=== PATIENT | male | born 1990 | race Hispanic/Latino ===

== ENCOUNTER 2019-09-07 20:35 | Emergency (ER) | payer SELFPAY ==
--- NOTE | 2019-09-07 20:57 | EDPHYS ---
Physician Documentation [facility] Name: Harpreet Rivsa Age: 29 yrs Sex: Male : 1990 Arrival Date: 09/07/2019 Time: 20:38 Bed 6 Private MD: ED Physician Frankie Millan HPI: 09/07 20:53 This 29 yrs old Male presents to ER via Ambulatory with complaints of Hand ma2 Pain, finger pain, swelling in finger. 20:53 The patient or guardian reports an abrasion, a contusion, decreased range of motion. ma2 Onset: The symptoms/episode began/occurred gradually, 1 day(s) ago. Associated signs and symptoms: Pertinent negatives: decreased sensation distally, fever, numbness distally, tingling distally. Severity of symptoms: At their worst the symptoms were mild, in the emergency department the symptoms are unchanged. The patient has not experienced similar symptoms in the past. Historical: - Allergies: 20:42 No Known Allergies; aj1 - Home Meds: 20:42 None [Active]; aj1 - PMHx: 20:42 None; aj1 - PSHx: 20:42 Knee surgery; finger surgery; Appendectomy; aj1 - Immunization history:: Flu vaccine is not up to date. - Social history:: Smoking status: Patient/guardian denies using tobacco, Patient/guardian denies using alcohol, street drugs, The patient lives with family. - Ebola Screening: : Patient denies travel to an Ebola-affected area in the 21 days before illness onset. - Family history:: not pertinent. ROS: 20:53 Constitutional: Negative for fever, chills, and weight loss. ma2 20:53 All other systems are negative. Exam: 20:53 Constitutional: This is a well developed, well nourished patient who is awake, alert, ma2 and in no acute distress. Head/Face: Normocephalic, atraumatic. Neck: Trachea midline, no thyromegaly or masses palpated, and no cervical lymphadenopathy. Supple, full range of motion without nuchal rigidity, or vertebral point tenderness. No Meningismus. Chest/axilla: Normal chest wall appearance and motion. Nontender with no deformity. No lesions are appreciated. Cardiovascular: Regular rate and rhythm with a normal S1 and S2. No gallops, murmurs, or rubs. Normal PMI, no JVD. No pulse deficits. Respiratory: Lungs have equal breath sounds bilaterally, clear to auscultation and percussion. No rales, rhonchi or wheezes noted. No increased work of breathing, no retractions or nasal flaring. Abdomen/GI: Soft, non-tender, with normal bowel sounds. No distension or tympany. No guarding or rebound. No evidence of tenderness throughout. Skin: Warm, dry with normal turgor. Normal color with no rashes, no lesions, and no evidence of cellulitis. MS/ Extremity: right 5th finger swelling and redness, mild, no puss pocket no tenosynovitis, otherwise Pulses equal, no cyanosis. Neurovascular intact. Full, normal range of motion. Neuro: Awake and alert, GCS 15, oriented to person, place, time, and situation. Cranial nerves II-XII grossly intact. Motor strength 5/5 in all extremities. Sensory grossly intact. Cerebellar exam normal. Normal gait. Vital Signs: 20:42 BP 135 / 85; Pulse 103; Resp 20; Temp 98.8; Pulse Ox 97% on R/A; Weight 122.47 kg (R); aj1 Height 6 ft. 1 in. (185.42 cm) (R); 20:42 Body Mass Index 35.62 (122.47 kg, 185.42 cm) [facility] MDM: 20:45 Patient medically screened. ma2 20:53 Differential diagnosis: contusion, abrasion, tendonitis, cellulitis. Data reviewed: [facility] vital signs, nurses notes. Counseling: I had a detailed discussion with the patient and/or guardian regarding: the historical points, exam findings, and any diagnostic results supporting the discharge/admit diagnosis, the presence of at least one elevated blood pressure reading (>120/80) during this emergency department visit, the need for outpatient follow up. Administered Medications: 21:00 Drug: Bactrim (160 mg-800 mg (DS) 1 tablet Route: PO; aa1 21:11 Follow up: Response: No adverse reaction aa1 21:00 Drug: Clindamycin 900 mg {Note: 2cc R deltoid; 2cc L deltoid.} Route: IM; Site: Other; aa1 21:11 Follow up: Response: No adverse reaction aa1 Disposition: 09/07/19 20:56 Discharged to Home. Impression: Cellulitis of other parts of limb - right 5th finger. - Condition is Stable. - Discharge Instructions: Cellulitis, Adult. - Prescriptions for Clindamycin HCl 300 mg Oral Capsule - take 1 capsule by ORAL route every 6 hours for 10 days; 40 capsule. Bactrim DS 800- 160 mg Oral Tablet - take 1 tablet by ORAL route every 12 hours for 5 days; 10 tablet. - Work release form, Medication Reconciliation Form, Thank You Letter, Antibiotic Education, Prescription Opioid Use form. - Follow up: Private Physician; When: Tomorrow; Reason: Continuance of care. Signatures: Miri Thompson RN RN aj1 Nikole Eli RN RN aa1 Frankie Millan MD MD ma2 Corrections: (The following items were deleted from the chart) 21:11 20:56 09/07/2019 20:56 Discharged to Home. Impression: Cellulitis of other parts of aa1 limb - right 5th finger. Condition is Stable. Forms are Medication Reconciliation Form, Thank You Letter, Antibiotic Education, Prescription Opioid Use. Follow up: Private Physician; When: Tomorrow; Reason: Continuance of care. ma2
--- NOTE | 2019-09-07 20:57 | ER ---
Nurse's Notes [facility] Name: Harpreet Rivas Age: 29 yrs Sex: Male : 1990 Arrival Date: 09/07/2019 Time: 20:38 Bed 6 Private MD: Diagnosis: Cellulitis of other parts of limb-right 5th finger Presentation: 09/07 20:40 Presenting complaint: Patient states: Swelling to right pinky that started on Friday. aj1 Patient reports that he is unsure why his finger started swelling, denies injury to finger. Denies fever. Redness and swelling noted to right pinky finger. Transition of care: patient was not received from another setting of care. Onset of symptoms was 2018. Risk Assessment: Do you want to hurt yourself or someone else? Patient reports no desire to harm self or others. Initial Sepsis Screen: Does the patient meet any 2 criteria? HR > 90 bpm. No. Patient's initial sepsis screen is negative. Does the patient have a suspected source of infection? Yes: Skin breakdown/wound. Care prior to arrival: None. 20:40 Method Of Arrival: Ambulatory aj 20:40 Acuity: JONAH 4 aj1 Triage Assessment: 20:42 General: Appears in no apparent distress. comfortable, Behavior is calm, cooperative, aj1 appropriate for age. Pain: Complains of pain in right hand and right arm Pain currently is 10 out of 10 on a pain scale. Neuro: Level of Consciousness is awake, alert, obeys commands. Cardiovascular: Patient's skin is warm and dry. Respiratory: Airway is patent Respiratory effort is even, unlabored, Respiratory pattern is regular, symmetrical. Historical: - Allergies: 20:42 No Known Allergies; aj1 - Home Meds: 20:42 None [Active]; aj1 - PMHx: 20:42 None; aj1 - PSHx: 20:42 Knee surgery; finger surgery; Appendectomy; aj1 - Immunization history:: Flu vaccine is not up to date. - Social history:: Smoking status: Patient/guardian denies using tobacco, Patient/guardian denies using alcohol, street drugs, The patient lives with family. - Ebola Screening: : Patient denies travel to an Ebola-affected area in the 21 days before illness onset. - Family history:: not pertinent. Vital Signs: 20:42 BP 135 / 85; Pulse 103; Resp 20; Temp 98.8; Pulse Ox 97% on R/A; Weight 122.47 kg (R); aj1 Height 6 ft. 1 in. (185.42 cm) (R); 20:42 Body Mass Index 35.62 (122.47 kg, 185.42 cm) aj1 ED Course: 20:38 Patient arrived in ED. cf2 20:42 Triage completed. aj1 20:42 Arm band placed on Patient placed in an exam room. aj1 20:45 Michael Ramos, RN is Primary Nurse. rv 20:45 Frankie Millan MD is Attending Physician. ma2 21:10 Nikole Eli RN is Primary Nurse. aa1 Administered Medications: 21:00 Drug: Bactrim (160 mg-800 mg (DS) 1 tablet Route: PO; aa1 21:11 Follow up: Response: No adverse reaction aa1 21:00 Drug: Clindamycin 900 mg {Note: 2cc R deltoid; 2cc L deltoid.} Route: IM; Site: Other; aa1 21:11 Follow up: Response: No adverse reaction aa1 Outcome: 20:56 Discharge ordered by . ma2 21:11 Patient left the ED. aa1 Signatures: Miri Thompson RN RN [facility] Nikole Eli RN RN aa1 Frankie Millan MD MD [facility] Michael Ramos RN RN Radha Merida [facility]
[2019-09-07] MEDS ORDERED: SMZ./TMP. 800/160 MG TABLET ONE (21:00)
[2019-09-07] MEDS ORDERED: CLINDAMYCIN IV 150 MG/ML (4 mL) VIAL ONE (21:00)
[2019-09-07 23:18] VITALS: BP 135/85; TEMP 98.8; O2SAT 97
== END 2019-09-07 21:11 | disposition home or self-care (01) ==
LOC: ER 20:35
DX: L03.011 Cellulitis of right finger (principal)
CPT/HCPCS: 96372; 99282; S0077

== ENCOUNTER 2019-11-28 18:00 | Emergency (ER) | payer SELFPAY ==
[2019-11-28] MEDS ORDERED: IBUPROFEN 400 MG TAB ONE (19:16)
--- NOTE | 2019-11-28 20:09 | ER ---
Nurse's Notes [facility] Name: Harpreet Rivas Age: 29 yrs Sex: Male : 1990 Arrival Date: 11/28/2019 Time: 18:03 Bed 7 Private MD: Diagnosis: Influenza due to certain identified influenza viruses;Streptococcal pharyngitis Presentation: 11/28 18:47 Presenting complaint: Patient states: fever, headache, cough, body aches and chills ss that began last night. Transition of care: patient was not received from another setting of care. Onset of symptoms was November 27, 2019. Risk Assessment: Do you want to hurt yourself or someone else? Patient reports no desire to harm self or others. Initial Sepsis Screen: Does the patient meet any 2 criteria? No. Patient's initial sepsis screen is negative. Does the patient have a suspected source of infection? No. Patient's initial sepsis screen is negative. Care prior to arrival: None. 18:47 Method Of Arrival: Ambulatory ss 18:47 Acuity: JONAH 4 ss Triage Assessment: 19:20 General: Appears in no apparent distress. uncomfortable, Behavior is calm, cooperative. vc Pain: Complains of pain in whole body "aches", sore throat. Historical: - Allergies: 18:48 No Known Allergies; ss - Home Meds: 18:48 None [Active]; ss - PMHx: 18:48 None; ss - Immunization history:: Adult Immunizations up to date. - Social history:: Smoking status: Patient/guardian denies using tobacco. - Ebola Screening: : Patient denies exposure to infectious person Patient denies travel to an Ebola-affected area in the 21 days before illness onset. Screenin:07 Abuse screen: Denies threats or abuse. Nutritional screening: No deficits noted. tw2 Tuberculosis screening: No symptoms or risk factors identified. Fall Risk None identified. Assessment: 19:30 General: Appears in no apparent distress. uncomfortable, ill, Behavior is calm, vc cooperative. Pain: Complains of pain in body and throat. 19:30 Neuro: Level of Consciousness is awake, alert, obeys commands, Oriented to person, vc place, time. Cardiovascular: Capillary refill < 3 seconds. Respiratory: Airway is patent. GI: Abdomen is non-distended. : No signs and/or symptoms were reported regarding the genitourinary system. EENT: No deficits noted. Derm: Skin is intact, is healthy with good turgor, Skin is clammy, diaphoretic. Musculoskeletal: Range of motion: intact in all extremities. 20:00 Reassessment: Patient and/or family updated on plan of care and expected duration. Pain vc level reassessed. Patient is alert, oriented x 3, equal unlabored respirations, skin warm/dry/pink. Patients at bedside. Patient resting at this time. Vital Signs: 18:48 BP 123 / 80; Pulse 113; Resp 16; Temp 102.2(TE); Pulse Ox 100% on R/A; Weight 122.47 ss kg; Height 6 ft. 1 in. (185.42 cm); Pain 10/10; 19:48 BP 126 / 80; Pulse 100; Resp 18; Temp 100.6(O); Pulse Ox 100% on R/A; vc 18:48 Body Mass Index 35.62 (122.47 kg, 185.42 cm) ED Course: 18:03 Patient arrived in ED. ag5 18:05 Elisabeth Botello F[facility]-C [facility]. kb 18:05 Antony Mccall MD is Attending Physician. kb 18:48 Triage completed. ss 18:50 Arm band placed on. tw2 18:50 Bed in low position. Call light in reach. Adult w/ patient. tw2 19:08 Iris Tamez, RN is Primary Nurse. vc 20:12 No provider procedures requiring assistance completed. Patient did not have IV access vc during this emergency room visit. Administered Medications: 19:18 Drug: Ibuprofen 800 mg Route: PO; vc 20:12 Follow up: Response: No adverse reaction; Temperature is decreased vc 20:12 Drug: Augmentin 875 mg Route: PO; vc 20:12 Follow up: Response: No adverse reaction; Medication administered at discharge. vc 20:12 Drug: Tamiflu 75 mg Route: PO; vc 20:12 Follow up: Response: No adverse reaction; Medication administered at discharge. vc Outcome: 20:07 Discharge ordered by . kb 20:16 Discharged to home ambulatory. vc 20:16 Condition: good 20:16 Discharge instructions given to patient, significant other, Instructed on discharge instructions, medication usage, Demonstrated understanding of instructions, medications, Prescriptions given X 2. 20:17 Patient left the ED. vc Signatures: Elisabeth Botello, ONUR-Ama MOHR-Jerrica Marques RN JANET ss Leela Snowden RN RN tw2 Kerri Galeano ag5 Iris Tamez RN RN vc
--- NOTE | 2019-11-28 20:10 | EDPHYS ---
Physician Documentation [facility] Name: Harpreet Rivas Age: 29 yrs Sex: Male : 1990 Arrival Date: 11/28/2019 Time: 18:03 Bed 7 Private MD: ED Physician Antony Mccall HPI: 11/28 20:06 This 29 yrs old Male presents to ER via Ambulatory with complaints of Cough, kb Fever. 20:06 The patient or guardian reports cough, that is intermittent, described as moderate, kb with no sputum, flu symptoms, low-grade fever, myalgias. Onset: The symptoms/episode began/occurred yesterday. Severity of symptoms: At their worst the symptoms were moderate, in the emergency department the symptoms are unchanged. Modifying factors: The symptoms are alleviated by nothing, the symptoms are aggravated by nothing. Associated signs and symptoms: Pertinent positives: fever, rhinorrhea, sore throat. The patient has not experienced similar symptoms in the past. The patient has not recently seen a physician. Historical: - Allergies: 18:48 No Known Allergies; ss - Home Meds: 18:48 None [Active]; ss - PMHx: 18:48 None; ss - Immunization history:: Adult Immunizations up to date. - Social history:: Smoking status: Patient/guardian denies using tobacco. - Ebola Screening: : Patient denies exposure to infectious person Patient denies travel to an Ebola-affected area in the 21 days before illness onset. ROS: 20:05 Neck: Negative for injury, pain, and swelling, Cardiovascular: Negative for chest pain, kb palpitations, and edema, Abdomen/GI: Negative for abdominal pain, nausea, vomiting, diarrhea, and constipation, Back: Negative for injury and pain, MS/Extremity: Negative for injury and deformity, Skin: Negative for injury, rash, and discoloration, Neuro: Negative for headache, weakness, numbness, tingling, and seizure. 20:05 Constitutional: Positive for body aches, chills, fatigue, fever, malaise. 20:05 ENT: Positive for sinus congestion, sore throat. 20:05 Respiratory: Positive for cough. Exam: 20:05 Constitutional: This is a well developed, well nourished patient who is awake, alert, kb and in no acute distress. Head/Face: Normocephalic, atraumatic. ENT: Nares patent. No nasal discharge, no septal abnormalities noted. Tympanic membranes are normal and external auditory canals are clear. Oropharynx with no redness, swelling, or masses, exudates, or evidence of obstruction, uvula midline. Mucous membranes moist. Neck: Trachea midline, no thyromegaly or masses palpated, and no cervical lymphadenopathy. Supple, full range of motion without nuchal rigidity, or vertebral point tenderness. No Meningismus. Chest/axilla: Normal chest wall appearance and motion. Nontender with no deformity. No lesions are appreciated. Cardiovascular: Regular rate and rhythm with a normal S1 and S2. No gallops, murmurs, or rubs. Normal PMI, no JVD. No pulse deficits. Respiratory: Lungs have equal breath sounds bilaterally, clear to auscultation and percussion. No rales, rhonchi or wheezes noted. No increased work of breathing, no retractions or nasal flaring. Abdomen/GI: Soft, non-tender, with normal bowel sounds. No distension or tympany. No guarding or rebound. No evidence of tenderness throughout. Skin: Warm, dry with normal turgor. Normal color with no rashes, no lesions, and no evidence of cellulitis. MS/ Extremity: Pulses equal, no cyanosis. Neurovascular intact. Full, normal range of motion. Neuro: Awake and alert, GCS 15, oriented to person, place, time, and situation. Cranial nerves II-XII grossly intact. Motor strength 5/5 in all extremities. Sensory grossly intact. Cerebellar exam normal. Normal gait. Vital Signs: 18:48 BP 123 / 80; Pulse 113; Resp 16; Temp 102.2(TE); Pulse Ox 100% on R/A; Weight 122.47 ss kg; Height 6 ft. 1 in. (185.42 cm); Pain 10/10; 19:48 BP 126 / 80; Pulse 100; Resp 18; Temp 100.6(O); Pulse Ox 100% on R/A; vc 18:48 Body Mass Index 35.62 (122.47 kg, 185.42 cm) ss MDM: 18:50 Patient medically screened. [facility] 20:05 Data reviewed: vital signs, nurses notes. Data interpreted: Pulse oximetry: on room air kb is 100 %. Interpretation: normal. Counseling: I had a detailed discussion with the patient and/or guardian regarding: the historical points, exam findings, and any diagnostic results supporting the discharge/admit diagnosis, lab results, the need for outpatient follow up, a family practitioner, to return to the emergency department if symptoms worsen or persist or if there are any questions or concerns that arise at home. 11/28 18:50 Order name: Flu; Complete Time: 19:57 kb 11/28 18:50 Order name: Strep; Complete Time: 19:51 kb Administered Medications: 19:18 Drug: Ibuprofen 800 mg Route: PO; vc 20:12 Follow up: Response: No adverse reaction; Temperature is decreased vc 20:12 Drug: Augmentin 875 mg Route: PO; vc 20:12 Follow up: Response: No adverse reaction; Medication administered at discharge. vc 20:12 Drug: Tamiflu 75 mg Route: PO; vc 20:12 Follow up: Response: No adverse reaction; Medication administered at discharge. vc Disposition: 11/28/19 20:07 Discharged to Home. Impression: Influenza due to certain identified influenza viruses, Streptococcal pharyngitis. - Condition is Stable. - Discharge Instructions: Strep Throat, [id number], Influenza, Adult, [id number]. - Prescriptions for Augmentin 875- 125 mg Oral Tablet - take 1 tablet by ORAL route every 12 hours for 10 days; 20 tablet. Tamiflu 75 mg Oral Capsule - take 1 capsule by ORAL route every 12 hours for 5 days; 10 capsule. - Medication Reconciliation Form, Thank You Letter, Antibiotic Education, Prescription Opioid Use, Work release form form. - Follow up: Emergency Department; When: As needed; Reason: Worsening of condition. Follow up: Private Physician; When: 2 - 3 days; Reason: Recheck today's complaints, Continuance of care, Re-evaluation by your physician. Addendum: 12/06/2019 11:12 Co-signature as Attending Physician, Antony Mccall MD I agree with the assessment and c parikh plan of care. Signatures: Dispatcher [employer] Elisabeth Lei, OFFICE ASSISTANT RECEPTIONIST-C ONUR-Antony Del Rosario MD MD cha Smirch, Shelby, RN RN ss Iris Tamez RN RN vc Corrections: (The following items were deleted from the chart) 11/28 20:17 20:07 11/28/2019 20:07 Discharged to Home. Impression: Influenza due to certain vc identified influenza viruses; Streptococcal pharyngitis. Condition is Stable. Forms are Work release form, Medication Reconciliation Form, Thank You Letter, Antibiotic Education, Prescription Opioid Use. Follow up: Emergency Department; When: As needed; Reason: Worsening of condition. Follow up: Private Physician; When: 2 - 3 days; Reason: Recheck today's complaints, Continuance of care, Re-evaluation by your physician. kb
[2019-11-28] MEDS ORDERED: OSELTAMIVIR 75 MG CAP ONE (20:12)
[2019-11-28] MEDS ORDERED: AMOX/K CLAV 875 MG TAB ONE (20:13)
[2019-11-28 22:01] VITALS: BP 123/80; TEMP 102.2; O2SAT 100
== END 2019-11-28 20:17 | disposition home or self-care (01) ==
LOC: ER 18:00
DX: J10.1 Influenza due to other identified influenza virus with other respiratory manifestations (principal); J02.0 Streptococcal pharyngitis
CPT/HCPCS: 87081; 87804; 99283

== ENCOUNTER 2020-05-07 19:54 | Emergency (ER) | payer SELFPAY ==
[2020-05-07] MEDS ORDERED: HYDROCODONE/APAP 7.5/325 MG TAB ONE (20:17)
--- NOTE | 2020-05-07 20:18 | ER ---
Nurse's Notes [facility] Name: Harpreet Rivas Age: 30 yrs Sex: Male : 1990 Arrival Date: 05/07/2020 Time: 19:55 Bed 18 Private MD: Diagnosis: Sciatica, left side Presentation: 05/07 20:10 Chief complaint: Patient states: Low back pain started yesterday after moving a couch. ll1 Pain radiates down left leg at times. Gait slow, but steady. Coronavirus screen: Proceed with normal triage. Patient denies a cough. Patient denies shortness of breath or difficulty breathing. Patient denies measured and/or subjective temperature greater than 100.4F prior to today's visit. Patient denies travel on a cruise ship or to a country the [facility] currently lists as an affected area. Patient denies contact with known and/or suspected case of COVID-19. Ebola Screen: Patient denies travel to an Ebola-affected area in the 21 days before illness onset. Initial Sepsis Screen: Does the patient meet any 2 criteria? No. Patient's initial sepsis screen is negative. Risk Assessment: Do you want to hurt yourself or someone else? Patient reports no desire to harm self or others. Onset of symptoms was May 06, 2020. 20:10 Method Of Arrival: Ambulatory ll1 20:10 Acuity: JONAH 4 ll1 Historical: - Allergies: 20:13 No Known Allergies; ll1 - PSHx: 20:13 Appendectomy; ll1 - Social history:: Smoking status: Patient/guardian denies using tobacco, Patient uses alcohol, weekly. "weekends". Patient/guardian denies using street drugs. Screenin:35 Abuse screen: Denies threats or abuse. Nutritional screening: No deficits noted. Tuberculosis screening: No symptoms or risk factors identified. Fall Risk None identified. Assessment: 20:20 General: Appears uncomfortable, Behavior is calm. Pain: Complains of pain in low back ah area and left low back Pain currently is 10 out of 10 on a pain scale. Quality of pain is described as stabbing, throbbing, Pain began 1 day ago. Neuro: Level of Consciousness is awake, alert, Oriented to person, place, time, situation. Cardiovascular: Capillary refill < 3 seconds Patient's skin is warm and dry. Respiratory: Airway is patent Respiratory effort is even, unlabored, Respiratory pattern is regular, symmetrical. Musculoskeletal: Range of motion: limited in left hip. 20:35 Reassessment: No adverse reaction noted to pain medication. Pt given discharge instructions and educated on prescriptions. Vital Signs: 20:10 BP 142 / 76; Pulse 90; Resp 17; Temp 98.7; Pulse Ox 99% ; Pain 10/10; ll1 ED Course: 19:55 Patient arrived in ED. cl3 20:05 Elisabeth Botello FNP-C [facility]. kb 20:05 Yusuf Azul MD is Attending Physician. kb 20:12 Triage completed. ll1 20:13 Arm band placed on Patient placed in an exam room, on a stretcher. ll1 20:19 Maureen Ny, RN is Primary Nurse. 20:35 No provider procedures requiring assistance completed. Patient did not have IV access ah during this emergency room visit. 20:44 Patient has correct armband on for positive identification. Bed in low position. Call light in reach. Side rails up X 1. Administered Medications: 20:15 Drug: [place] (7.5 mg-325 mg) 1 tabs Route: PO; 20:45 Follow up: Response: No adverse reaction Outcome: 20:18 Discharge ordered by . kb 20:35 Discharged to home ambulatory. 20:35 Condition: good 20:35 Discharge instructions given to patient, Instructed on discharge instructions, follow up and referral plans. medication usage, Demonstrated understanding of instructions, follow-up care, medications. 20:45 Patient left the ED. Signatures: Elisabeth Botello FNP-C FNP-Ckb Lewis, Charde cl3 Maureen Ny, RN RN Bianca Pittman RN RN [facility]
--- NOTE | 2020-05-07 20:19 | EDPHYS ---
Physician Documentation [facility] Name: Harpreet Rivas Age: 30 yrs Sex: Male : 1990 Arrival Date: 05/07/2020 Time: 19:55 Bed 18 Private MD: ED Physician Yusuf Azul HPI: 05/07 20:12 This 30 yrs old Male presents to ER via Ambulatory with complaints of Low Back kb Pain. 20:12 The patient presents with pain that is acute, with no known mechanism of injury. The kb symptoms are located in the low back. The pain radiates to the left leg. The problem was sustained when lifting heavy object. Onset: The symptoms/episode began/occurred yesterday. Modifying factors: The patient symptoms are alleviated by nothing, the patient symptoms are aggravated by any movement. Associated signs and symptoms: The patient has no apparent associated signs or symptoms, Pertinent negatives: dysuria, fever, numbness, tingling, urinary retention. Severity of symptoms: At their worst the symptoms were moderate, in the emergency department the symptoms are unchanged. The patient has not experienced similar symptoms in the past. The patient has not recently seen a physician. Historical: - Allergies: 20:13 No Known Allergies; ll1 - PSHx: 20:13 Appendectomy; ll1 - Social history:: Smoking status: Patient/guardian denies using tobacco, Patient uses alcohol, weekly. "weekends". Patient/guardian denies using street drugs. ROS: 20:09 Constitutional: Negative for fever, chills, and weight loss, Cardiovascular: Negative kb for chest pain, palpitations, and edema, Respiratory: Negative for shortness of breath, cough, wheezing, and pleuritic chest pain, Abdomen/GI: Negative for abdominal pain, nausea, vomiting, diarrhea, and constipation, : Negative for injury, bleeding, discharge, and swelling, MS/Extremity: Negative for injury and deformity, Skin: Negative for injury, rash, and discoloration, Neuro: Negative for headache, weakness, numbness, tingling, and seizure. 20:09 Back: Positive for pain at rest, pain with movement, radiated pain, of the left low back. Exam: 20:09 Constitutional: This is a well developed, well nourished patient who is awake, alert, kb and in no acute distress. Head/Face: Normocephalic, atraumatic. Chest/axilla: Normal chest wall appearance and motion. Nontender with no deformity. No lesions are appreciated. Cardiovascular: Regular rate and rhythm with a normal S1 and S2. No gallops, murmurs, or rubs. Normal PMI, no JVD. No pulse deficits. Respiratory: Lungs have equal breath sounds bilaterally, clear to auscultation and percussion. No rales, rhonchi or wheezes noted. No increased work of breathing, no retractions or nasal flaring. Abdomen/GI: Soft, non-tender, with normal bowel sounds. No distension or tympany. No guarding or rebound. No evidence of tenderness throughout. Skin: Warm, dry with normal turgor. Normal color with no rashes, no lesions, and no evidence of cellulitis. MS/ Extremity: Pulses equal, no cyanosis. Neurovascular intact. Full, normal range of motion. Neuro: Awake and alert, GCS 15, oriented to person, place, time, and situation. Cranial nerves II-XII grossly intact. Motor strength 5/5 in all extremities. Sensory grossly intact. Cerebellar exam normal. Normal gait. 20:09 Back: pain, that is moderate, of the left low back, ROM is painful, normal spinal alignment noted. Vital Signs: 20:10 BP 142 / 76; Pulse 90; Resp 17; Temp 98.7; Pulse Ox 99% ; Pain 10/10; ll1 MDM: 20:05 Patient medically screened. kb 20:09 Data reviewed: vital signs, nurses notes. Data interpreted: Pulse oximetry: on room air kb is 100 %. Interpretation: normal. Counseling: I had a detailed discussion with the patient and/or guardian regarding: the historical points, exam findings, and any diagnostic results supporting the discharge/admit diagnosis, the need for outpatient follow up, a family practitioner, to return to the emergency department if symptoms worsen or persist or if there are any questions or concerns that arise at home. Administered Medications: 20:15 Drug: [place] (7.5 mg-325 mg) 1 tabs Route: PO; 20:45 Follow up: Response: No adverse reaction Disposition: 05/08 03:45 Co-signature as Attending Physician, Yusuf Azul MD. mh7 Disposition: 06/07/20 20:18 Discharged to Home. Impression: Sciatica, left side. - Condition is Stable. - Discharge Instructions: Sciatica, [id number], Back Exercises, [id number]-Phoo. - Prescriptions for Cyclobenzaprine 10 mg Oral Tablet - take 1 tablet by ORAL route every 8 hours As needed; 21 tablet. Diclofenac Sodium 75 mg Oral Tablet, Delayed Release (E.C.) - take 1 tablet by ORAL route 2 times per day As needed; 30 tablet. - Medication Reconciliation Form, Thank You Letter, Antibiotic Education, Prescription Opioid Use form. - Follow up: Emergency Department; When: As needed; Reason: Worsening of condition. Follow up: Private Physician; When: 2 - 3 days; Reason: Recheck today's complaints, Continuance of care, Re-evaluation by your physician. Signatures: Elisabeth Botello, CAMP COOK-C CAMP COOK-Maureen Yee, RN RN Bianca Pittman RN RN ll1 Yusuf Azul MD MD mh7 Corrections: (The following items were deleted from the chart) 05/07 20:45 20:18 05/07/2020 20:18 Discharged to Home. Impression: Sciatica, left side. Condition ah is Stable. Forms are Medication Reconciliation Form, Thank You Letter, Antibiotic Education, Prescription Opioid Use. Follow up: Emergency Department; When: As needed; Reason: Worsening of condition. Follow up: Private Physician; When: 2 - 3 days; Reason: Recheck today's complaints, Continuance of care, Re-evaluation by your physician. kb
[2020-05-07 20:54] VITALS: BP 142/76; TEMP 98.7; O2SAT 99
== END 2020-05-07 20:45 | disposition home or self-care (01) ==
LOC: ER 19:54
DX: M54.32 Sciatica, left side (principal)
CPT/HCPCS: 99283

== ENCOUNTER 2020-12-14 21:58 | Emergency (ER) | payer SELFPAY ==
--- NOTE | 2020-12-15 00:04 | ER ---
Nurse's Notes [facility] Name: Harpreet Rivas Age: 30 yrs Sex: Male : 1990 Arrival Date: 12/14/2020 Time: 22:01 Bed External Waiting [facility] MD: Diagnosis: Presentation: 12/14 22:13 Chief complaint: Patient states: An hour or 2 ago after I showered, got red rashes all ca1 over the body and very itchy. Denies using new soap or body wash. Denies any allergies. Denies difficulty breathing. Coronavirus screen: Client denies travel out of the [place] in the last 14 days. At this time, the client does not indicate any symptoms associated with coronavirus-19. Ebola Screen: Patient negative for fever greater than or equal to 101.5 degrees Fahrenheit, and additional compatible Ebola Virus Disease symptoms Patient denies exposure to infectious person. Patient denies travel to an Ebola-affected area in the 21 days before illness onset. No symptoms or risks identified at this time. Initial Sepsis Screen: Does the patient meet any 2 criteria? No. Patient's initial sepsis screen is negative. Does the patient have a suspected source of infection? No. Patient's initial sepsis screen is negative. Risk Assessment: Do you want to hurt yourself or someone else? Patient reports no desire to harm self or others. Onset of symptoms was December 14, 2020. 22:13 Method Of Arrival: Ambulatory ca1 22:13 Acuity: JONAH 4 ca1 Historical: - Allergies: 22:16 No Known Allergies; ca1 - Home Meds: 22:16 None [Active]; ca1 - PMHx: 22:16 None; ca1 - PSHx: 22:16 Knee surgery; Appendectomy; ca1 - Immunization history:: Flu vaccine is up to date. - Social history:: Smoking status: Patient/guardian denies using tobacco, the patient reports quitting approximately 2 years ago. Vital Signs: 22:13 BP 128 / 84; Pulse 78; Resp 16 S; Temp 97.1(TE); Pulse Ox 98% on R/A; Weight 124.74 kg ca1 (R); Height 6 ft. 1 in. (185.42 cm) (R); Pain 0/10; 22:13 Body Mass Index 36.28 (124.74 kg, 185.42 cm) ca1 ED Course: 22:01 Patient arrived in ED. ag3 22:15 Triage completed. ca1 22:16 Arm band placed on right wrist. ca1 Administered Medications: No medications were administered Outcome: 12/15 00:03 Patient left the ED. sg Signatures: Hasmukh Mcknight RN RN sg Silvia Dangelo ag3 Manisha Copeland RN RN ca1 Corrections: (The following items were deleted from the chart) 12/14 22:16 22:13 Pulse 78bpm; Resp 16bpm; Spontaneous; Pulse Ox 98% RA; Temp 97.1F Temporal; ca1 124.74 kg Reported; Height 6 ft. 1 in. Reported; BMI: 36.2; Pain 0/10; ca1
[2020-12-15 00:42] VITALS: BP 128/84; TEMP 97.1; O2SAT 98
== END 2020-12-15 00:03 | disposition left against medical advice (07) ==
LOC: ER 21:58
DX: Z53.21 Procedure and treatment not carried out due to patient leaving prior to being seen by health care provider (principal)
CPT/HCPCS: 99281

== ENCOUNTER 2020-12-15 22:42 | Emergency (ER) | payer SELFPAY ==
[2020-12-15] MEDS ORDERED: predniSONE 20 MG TAB ONE (23:25)
[2020-12-15] MEDS ORDERED: FAMOTIDINE 20 MG TAB ONE (23:25)
--- NOTE | 2020-12-15 23:49 | ER ---
Nurse's Notes [facility] Name: Harpreet Rivas Age: 30 yrs Sex: Male : 1990 Arrival Date: 12/15/2020 Time: 22:44 Bed 8 Private MD: Diagnosis: Urticaria, unspecified Presentation: 12/15 22:53 Chief complaint: Patient states: i have rash and itchiness in my body and arms for 2 mg2 days. Coronavirus screen: Client denies travel out of the [place] in the last 14 days. At this time, the client does not indicate any symptoms associated with coronavirus-19. Ebola Screen: No symptoms or risks identified at this time. Onset: The symptoms/episode began/occurred gradually. Anaphylaxis evaluation, no signs or symptoms of anaphylaxis were noted. Initial Sepsis Screen: Does the patient meet any 2 criteria? No. Patient's initial sepsis screen is negative. Does the patient have a suspected source of infection? No. Patient's initial sepsis screen is negative. Risk Assessment: Do you want to hurt yourself or someone else? Patient reports no desire to harm self or others. Onset of symptoms was December 14, 2020. 22:53 Method Of Arrival: Ambulatory mg2 22:53 Acuity: JONAH 4 mg2 Historical: - Allergies: 22:55 No Known Allergies; mg2 - Home Meds: 22:55 None [Active]; mg2 - PMHx: 22:55 None; mg2 - PSHx: 22:55 Appendectomy; mg2 - Immunization history:: Flu vaccine is up to date. - Social history:: Smoking status: Patient denies any tobacco usage or history of. Patient/guardian denies using alcohol, street drugs, IV drugs. Screenin:12 Abuse screen: Denies threats or abuse. Denies injuries from another. Nutritional mg2 screening: No deficits noted. Tuberculosis screening: No symptoms or risk factors identified. Fall Risk None identified. Assessment: 23:11 General: Appears in no apparent distress. comfortable, Behavior is calm, cooperative. mg2 Pain: Denies pain. Neuro: Level of Consciousness is awake, alert, obeys commands, Oriented to person, place, time, situation. Cardiovascular: Capillary refill < 3 seconds Patient's skin is warm and dry. Respiratory: Airway is patent Respiratory effort is even, unlabored, Respiratory pattern is regular, symmetrical, Breath sounds are clear. GI: No signs and/or symptoms were reported involving the gastrointestinal system. : No signs and/or symptoms were reported regarding the genitourinary system. EENT: No signs and/or symptoms were reported regarding the EENT system. Derm: Skin is intact, is healthy with good turgor, Rash noted that is itchy, red. Musculoskeletal: Circulation, motion, and sensation intact. Capillary refill < 3 seconds. 12/16 00:04 Reassessment: Patient appears in no apparent distress at this time. Patient is alert, rr5 oriented x 3, equal unlabored respirations, skin warm/dry/pink. discharge instruction given and explained without complaints made. Vital Signs: 12/15 22:53 BP 138 / 84; Pulse 88; Resp 18; Temp 98.5; Pulse Ox 98% on R/A; Weight 124.74 kg; mg2 Height 6 ft. 1 in. (185.42 cm); 12/16 00:00 BP 129 / 80; Pulse 80; Resp 17; Pulse Ox 99% ; rr5 12/15 22:53 Body Mass Index 36.28 (124.74 kg, 185.42 cm) mg2 ED Course: 12/15 22:44 Patient arrived in ED. cf2 22:52 Yusuf Azul MD is Attending Physician. 7 22:53 Juan Monet, JANET is Primary Nurse. mg2 22:54 Triage completed. mg2 22:55 Patient has correct armband on for positive identification. mg2 23:12 Arm band placed on. mg2 23:12 No provider procedures requiring assistance completed. Patient did not have IV access mg2 during this emergency room visit. 23:48 Edwin Sommer MD is Referral Physician. mh7 Administered Medications: 23:11 Drug: predniSONE 60 mg Route: PO; mg2 12/16 00:05 Follow up: Response: No adverse reaction rr5 12/15 23:11 Drug: Pepcid 20 mg Route: PO; mg2 12/16 00:05 Follow up: Response: No adverse reaction rr5 Outcome: 12/15 23:49 Discharge ordered by . mh7 12/16 00:04 Discharged to home ambulatory. rr5 Condition: stable Discharge instructions given to patient, Instructed on discharge instructions, follow up and referral plans. medication usage, Demonstrated understanding of instructions, follow-up care, medications, Prescriptions given X 3. 00:05 Patient left the ED. rr5 Signatures: Juan Monet RN RN mg2 Christian Cooper RN RN rr5 Radha Merida 2 Yusuf Azul MD MD 7
--- NOTE | 2020-12-15 23:49 | EDPHYS ---
Physician Documentation [facility] Name: Harpreet Rivas Age: 30 yrs Sex: Male : 1990 Arrival Date: 12/15/2020 Time: 22:44 Bed 8 Private MD: ED Physician Yusuf Azul HPI: 12/15 23:09 This 30 yrs old Male presents to ER via Ambulatory with complaints of Rash, mh7 Itching. 23:09 The patient's rash thought to be caused by an unknown cause. The rash is located on the mh7 body diffusely. The rash can be described as urticarial. Onset: The symptoms/episode began/occurred 2 day(s) ago. Associated signs and symptoms: Pertinent positives: itching, Pertinent negatives: burning sensation, difficulty breathing, fever, nausea, Pain swelling of lips, swelling of throat, swelling of tongue, vomiting, wheezing. 23:11 Severity of symptoms: At their worst the symptoms were mild yesterday, in the emergency [facility] department the symptoms are unchanged. Treatment given at home: Benadryl. Historical: - Allergies: 22:55 No Known Allergies; mg2 - Home Meds: 22:55 None [Active]; mg2 - PMHx: 22:55 None; mg2 - PSHx: 22:55 Appendectomy; mg2 - Immunization history:: Flu vaccine is up to date. - Social history:: Smoking status: Patient denies any tobacco usage or history of. Patient/guardian denies using alcohol, street drugs, IV drugs. ROS: 23:11 Constitutional: Negative for fever, chills, and weight loss, Eyes: Negative for injury, mh7 pain, redness, and discharge, ENT: Negative for injury, pain, and discharge, Neck: Negative for injury, pain, and swelling, Cardiovascular: Negative for chest pain, palpitations, and edema, Respiratory: Negative for shortness of breath, cough, wheezing, and pleuritic chest pain, Abdomen/GI: Negative for abdominal pain, nausea, vomiting, diarrhea, and constipation, Back: Negative for injury and pain, : Negative for injury, bleeding, discharge, and swelling, MS/Extremity: Negative for injury and deformity, Neuro: Negative for headache, weakness, numbness, tingling, and seizure, Psych: Negative for depression, anxiety, suicide ideation, homicidal ideation, and hallucinations, Allergy/Immunology: Negative for hives, rash, and allergies, Endocrine: Negative for neck swelling, polydipsia, polyuria, polyphagia, and marked weight changes, Hematologic/Lymphatic: Negative for swollen nodes, abnormal bleeding, and unusual bruising. Exam: 23:11 Constitutional: This is a well developed, well nourished patient who is awake, alert, mh7 and in no acute distress. 23:12 Head/Face: Normocephalic, atraumatic. Eyes: Pupils equal round and reactive to light, mh7 extra-ocular motions intact. Lids and lashes normal. Conjunctiva and sclera are non-icteric and not injected. Cornea within normal limits. Periorbital areas with no swelling, redness, or edema. ENT: Nares patent. No nasal discharge, no septal abnormalities noted. Tympanic membranes are normal and external auditory canals are clear. Oropharynx with no redness, swelling, or masses, exudates, or evidence of obstruction, uvula midline. Mucous membranes moist. Neck: Trachea midline, no thyromegaly or masses palpated, and no cervical lymphadenopathy. Supple, full range of motion without nuchal rigidity, or vertebral point tenderness. No Meningismus. 23:12 Cardiovascular: Regular rate and rhythm with a normal S1 and S2. No gallops, murmurs, or rubs. Normal PMI, no JVD. No pulse deficits. Respiratory: Lungs have equal breath sounds bilaterally, clear to auscultation and percussion. No rales, rhonchi or wheezes noted. No increased work of breathing, no retractions or nasal flaring. 23:12 MS/ Extremity: Pulses equal, no cyanosis. Neurovascular intact. Full, normal range of motion. Neuro: Awake and alert, GCS 15, oriented to person, place, time, and situation. Cranial nerves II-XII grossly intact. Motor strength 5/5 in all extremities. Sensory grossly intact. Cerebellar exam normal. Normal gait. Psych: Awake, alert, with orientation to person, place and time. Behavior, mood, and affect are within normal limits. 23:12 Chest/axilla: Inspection: rash, of the anterior aspect of right upper chest and anterior aspect of left upper chest Palpation: is normal, Axilla: are normal, Lymph nodes: lymphadenopathy is not appreciated. 23:12 Abdomen/GI: Inspection: rash, Bowel sounds: normal, in all quadrants, Palpation: abdomen is soft and non-tender, in all quadrants, Indicators: McBurney's point is not tender, Costa's sign is negative, Rovsing's sign is negative, Obturator sign is negative, Psoas sign is negative, Liver: no appreciated palpable abnormalities, Hernia: not appreciated. 23:12 Back: pain, is absent, ROM is normal, normal spinal alignment noted, CVA tenderness, is absent, muscle spasm, is not present, rash. 23:12 Skin: rash a mild rash is noted, urticaria, on the back, chest, abdomen, right arm, left arm, right leg and left leg. Vital Signs: 22:53 BP 138 / 84; Pulse 88; Resp 18; Temp 98.5; Pulse Ox 98% on R/A; Weight 124.74 kg; mg2 Height 6 ft. 1 in. (185.42 cm); 12/16 00:00 BP 129 / 80; Pulse 80; Resp 17; Pulse Ox 99% ; rr5 12/15 22:53 Body Mass Index 36.28 (124.74 kg, 185.42 cm) mg2 MDM: 12/15 23:46 Differential diagnosis: impetigo, varicella, allergic reaction. Data reviewed: vital [facility] signs, nurses notes. Data interpreted: Pulse oximetry: on room air is 98 %. Interpretation: normal. Counseling: I had a detailed discussion with the patient and/or guardian regarding: the historical points, exam findings, and any diagnostic results supporting the discharge/admit diagnosis, the presence of at least one elevated blood pressure reading (>120/80) during this emergency department visit, the need for outpatient follow up, a criminal lawyer, a family practitioner. Response to treatment: the patient's symptoms have markedly improved after treatment. 23:49 Patient medically screened. [facility] Administered Medications: 23:11 Drug: predniSONE 60 mg Route: PO; mg2 12/16 00:05 Follow up: Response: No adverse reaction rr5 12/15 23:11 Drug: Pepcid 20 mg Route: PO; mg2 12/16 00:05 Follow up: Response: No adverse reaction rr5 Disposition: 12/15/20 23:49 Discharged to Home. Impression: Urticaria, unspecified. - Condition is Stable. - Discharge Instructions: Rash, [id number], Hives, [id number]. - Prescriptions for Benadryl 25 mg Oral Capsule - take 1 capsule by ORAL route every 6 hours As needed; 30 tablet. Pepcid 20 mg Oral Tablet - take 1 tablet by ORAL route every 12 hours for 5 days; 10 tablet. Prednisone 20 mg Oral Tablet - take 2 tablet by ORAL route once daily for 5 days; 10 tablet. - Medication Reconciliation Form, Thank You Letter, Antibiotic Education, Prescription Opioid Use form. - Follow up: Private Physician; When: 1 - 2 days; Reason: Worsening of condition, Recheck today's complaints, Continuance of care, Re-evaluation by your physician. Follow up: Edwin Sommer MD; When: 1 - 2 days; Reason: Worsening of condition, Recheck today's complaints. - Problem is new. - Symptoms have improved. Signatures: Juan Monet RN RN mg2 Christian Cooper RN RN rr5 Yusuf Azul MD MD mh7 Corrections: (The following items were deleted from the chart) 00:05 12/15 23:49 12/15/2020 23:49 Discharged to Home. Impression: Urticaria, unspecified. rr5 Condition is Stable. Forms are Medication Reconciliation Form, Thank You Letter, Antibiotic Education, Prescription Opioid Use. Follow up: Private Physician; When: 1 - 2 days; Reason: Worsening of condition, Recheck today's complaints, Continuance of care, Re-evaluation by your physician. Follow up: Edwin Sommer; When: 1 - 2 days; Reason: Worsening of condition, Recheck today's complaints. Problem is new. Symptoms have improved. mh7
[2020-12-16 00:36] VITALS: TEMP 98.5
[2020-12-16 00:37] VITALS: BP 129/80; O2SAT 99
== END 2020-12-16 00:05 | disposition home or self-care (01) ==
LOC: ER 22:42
DX: L50.9 Urticaria, unspecified (principal)
CPT/HCPCS: 99283; J7512

== ENCOUNTER 2024-06-06 16:05 | Emergency (ER) | payer SELFPAY ==
[2024-06-06] MEDS ORDERED: HYDROCODONE/APAP 7.5/325 MG TAB ONE (16:25)
--- NOTE | 2024-06-06 18:16 | RAD REPORT ---
EXAM DESCRIPTION: RAD - Foot Right 3 View - 06/06/2024 6:06 pm CLINICAL HISTORY: Right foot pain status post injury FINDINGS: No fracture or dislocation is seen
--- NOTE | 2024-06-06 18:22 | ER ---
Nurse's Notes [facility] Name: Harpreet Rivas Age: 34 yrs Sex: Male : 1990 Arrival Date: 06/06/2024 Time: 16:05 Bed 18 Private MD: Diagnosis: Contusion of right foot Presentation: 06/06 16:15 Chief complaint: Patient states: Dropped a piece of plywood on top of R foot, swelling ph noted. Coronavirus screen: Vaccine status: Patient reports receiving the 1st dose of the Covid vaccine. Ebola Screen: No symptoms or risks identified at this time. Initial Sepsis Screen: Does the patient meet any 2 criteria? No. Patient's initial sepsis screen is negative. Does the patient have a suspected source of infection? No. Patient's initial sepsis screen is negative. Risk Assessment: Do you want to hurt yourself or someone else? Patient reports no desire to harm self or others. Onset of symptoms was June 06, 2024. 16:15 Method Of Arrival: Ambulatory ph 16:15 Acuity: JONAH 4 ph Historical: - Allergies: 16:16 No Known Allergies; ph - PMHx: 16:16 None; rs5 - PSHx: 16:16 Appendectomy; ph - Immunization history:: Adult Immunizations unknown. - Infectious Disease History:: Denies. - Social history:: Smoking status: Patient denies any tobacco usage or history of. Screenin:31 [facility] ED Fall Risk Assessment (Adult) History of falling in the last 3 months, le1 including since admission No falls in past 3 months (0 pts) Confusion or Disorientation No (0 pts) Intoxicated or Sedated No (0 pts) Impaired Gait No (0 pts) Mobility Assist Device Used No (0 pt) Altered Elimination No (0 pt) Score/Fall Risk Level 0 - 2 = Low Risk. Abuse screen: Denies threats or abuse. Nutritional screening: No deficits noted. Tuberculosis screening: No symptoms or risk factors identified. Assessment: 16:29 General: Appears in no apparent distress. comfortable, Behavior is calm, cooperative. le1 Pain: Complains of pain in right foot Pain currently is 9 out of 10 on a pain scale. Quality of pain is described as aching, throbbing. Neuro: No deficits noted. Cardiovascular: No deficits noted. Respiratory: No deficits noted. GI: No deficits noted. : No deficits noted. Musculoskeletal: Swelling present in right foot Tenderness present in right foot Reports Pt states his dropped ply wood on his R foot and was not wearing shoes. 17:41 Reassessment: Patient and/or family updated on plan of care and expected duration. Pain rs5 level reassessed. Patient is alert, oriented x 3, equal unlabored respirations, skin warm/dry/pink. Patient states feeling better. Patient states symptoms have improved. 18:33 Reassessment: No changes from previously documented assessment. rs5 19:28 Reassessment: No changes from previously documented assessment. rs5 Vital Signs: 16:15 BP 138 / 88; Pulse 89; Resp 18; Temp 97.9; Pulse Ox 98% on R/A; Weight 136.08 kg; ph Height 6 ft. 1 in. ; 16:31 BP 129 / 85; Pulse 91; Resp 18; Pulse Ox 98% ; le1 18:41 BP 124 / 81; Pulse 77; Resp 17; Pulse Ox 99% on R/A; rs5 16:15 Body Mass Index 39.58 (136.08 kg, 185.42 cm) ph ED Course: 16:08 Patient arrived in ED. mg5 16:09 Elisabeth Botello FNP-C is PHCP. kb 16:09 John Saldaña MD is Attending Physician. kb 16:16 Triage completed. ph 16:16 Arm band placed on Patient placed in an exam room. ph 16:21 Yessica Bateman, RN is Primary Nurse. le1 16:32 Patient has correct armband on for positive identification. Bed in low position. Call le1 light in reach. Side rails up X2. Provided Education on: Use call light if needed for assistance. 16:33 Wound care: located on right foot ice pack applied. Patient tolerated well. le1 17:57 PHCP role handed off by Elisabeth Botello FNP-C sb4 17:57 Paige Rivera PA-C is PHCP. sb4 18:08 Foot Right 3 View In Process Unspecified. EDMS 18:50 No provider procedures requiring assistance completed. Patient did not have IV access rs5 during this emergency room visit. Administered Medications: 16:27 Drug: Hydrocodone-Acetaminophen PO (7.5 mg-325 mg) 1 tabs PO once Route: PO; le1 17:08 Follow up: Response: No adverse reaction; Pain is decreased le1 Medication: 16:32 VIS not applicable for this client. le1 Outcome: 18:21 Discharge ordered by . sb4 18:50 Patient left the ED. rs5 18:50 Discharged to home with crutches, 18:50 Condition: stable 18:50 Discharge instructions given to patient, family, Instructed on discharge instructions, follow up and referral plans. Demonstrated understanding of instructions, follow-up care, Signatures: Dispatcher [employer] [facility] Elisabeth Botello, MAIL PROCESSING CLERK-C MAIL PROCESSING CLERK-Stephanie Huber RN RN Paige Tinoco PA-C PA-C sb4 Thiago Bear RN RN [email or web address] Ange Rios 5 Yessica Bateman RN RN le1 Corrections: (The following items were deleted from the chart) 19:32 19:28 Patient did not have IV access during this emergency room visit. rs5 rs5 19:32 19:28 No provider procedures requiring assistance completed. rs5 rs5 19:32 19:29 Patient left the ED. rs5 rs5 19:32 19:28 Discharged to home with crutches, rs5 rs5 19:32 19:28 Condition: stable rs5 rs5 19:32 19:28 Discharge instructions given to patient, family, Instructed on discharge rs5 instructions, follow up and referral plans. Demonstrated understanding of instructions, follow-up care, rs5
--- NOTE | 2024-06-06 18:22 | EDPHYS ---
Physician Documentation [facility] Name: Harpreet Rivas Age: 34 yrs Sex: Male : 1990 Arrival Date: 06/06/2024 Time: 16:05 Bed 18 Private MD: ED Physician John Saldaña HPI: 06/06 17:28 This 34 yrs old Male presents to ER via Ambulatory with complaints of Foot kb Pain, Leg Pain. 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 Pt is able to ambulate. Denies any other injury. Historical: - Allergies: 16:16 No Known Allergies; ph - PMHx: 16:16 None; rs5 - PSHx: 16:16 Appendectomy; ph - Immunization history:: Adult Immunizations unknown. - Infectious Disease History:: Denies. - Social history:: Smoking status: Patient denies any tobacco usage or history of. ROS: 17:27 Constitutional: As per HPI kb Exam: 17:27 Constitutional: This is a well developed, well nourished patient who is awake, alert, kb and in no acute distress. Head/Face: Normocephalic, atraumatic. ENT: Moist Mucous membranes Cardiovascular: Regular rate Respiratory: Respirations even and unlabored. No increased work of breathing. Talking in full sentences Abdomen/GI: Soft, non-tender. No distention MS/ Extremity: Pulses equal, no cyanosis. Neurovascular intact. Full, normal range of motion. Neuro: Awake and alert, GCS 15, oriented to person, place, time, and situation. Moves all extremities. Normal gait. 17:27 Skin: injury, contusion(s), that are superficial, of the dorsum of right foot, Vital Signs: 16:15 BP 138 / 88; Pulse 89; Resp 18; Temp 97.9; Pulse Ox 98% on R/A; Weight 136.08 kg; ph Height 6 ft. 1 in. ; 16:31 BP 129 / 85; Pulse 91; Resp 18; Pulse Ox 98% ; le1 18:41 BP 124 / 81; Pulse 77; Resp 17; Pulse Ox 99% on R/A; rs5 16:15 Body Mass Index 39.58 (136.08 kg, 185.42 cm) ph MDM: 16:09 Patient medically screened. kb 17:27 Differential diagnosis: dislocation, closed fracture, contusion. Data reviewed: vital kb signs, nurses notes. Counseling: I had a detailed discussion with the patient and/or guardian regarding the historical points, exam findings, and any diagnostic results supporting the discharge/admit diagnosis, radiology results, the need for outpatient follow up, a family practitioner, to return to the emergency department if symptoms worsen or persist or if there are any questions or concerns that arise at home. 06/06 18:01 Order name: Foot Right 3 View; Complete Time: 18:19 EDMS 06/06 16:21 Order name: Ice pack; Complete Time: 16:21 kb 06/06 18:22 Order name: Crutches; Complete Time: 18:26 sb4 Administered Medications: 16:27 Drug: Hydrocodone-Acetaminophen PO (7.5 mg-325 mg) 1 tabs PO once Route: PO; le1 17:08 Follow up: Response: No adverse reaction; Pain is decreased le1 Disposition Summary: 06/06/24 18:21 Discharge Ordered Notes: Location: Home sb4 Condition: Stable sb4 Diagnosis - Contusion of right foot sb4 Followup: kb - With: Emergency Department - When: As needed - Reason: Worsening of condition Followup: kb - With: Private Physician - When: 2 - 3 days - Reason: Recheck today's complaints, Continuance of care, Re-evaluation by your physician Discharge Instructions: - Discharge Summary Sheet kb - Foot Contusion, [id number] kb Forms: - Patient Portal Instructions sb4 - Leadership Thank You Letter sb4 Signatures: Dispatcher [employer] Elisabeth Lei, ICU CLERK-C ICU CLERK-Stephanie Huber, RN RN Paige Tinoco PA-C PARhett sb4 Thiago Bear, RN RN rs5 Yessica Bateman RN RN le1 Corrections: (The following items were deleted from the chart) 18:00 16:21 Foot Right 3 View+[email or web address] ordered. EDWA EDWA
[2024-06-06 19:45] VITALS: BP 129/85; TEMP 97.9; O2SAT 98
== END 2024-06-06 19:29 | disposition home or self-care (01) ==
LOC: ER 16:05
DX: S90.31XA Contusion of right foot, initial encounter (principal)
CPT/HCPCS: 99283